=== PATIENT | female | born 1990 | race Caucasian/White ===

== ENCOUNTER 2017-06-27 16:09 | Emergency (ER) | payer MEDICAID ==
[~2017-06-27] VITALS: Ht 157.5 cm; Wt 54.5 kg
[~2017-06-27 16:09] MED LIST: DOXY100C PO; LEVO13.5 I-UTERINE
[2017-06-27] MEDS ORDERED: IOHEXOL 350 MG/ML 10 ML VIAL (for RAD DIAG) IVCONTRAST ONE (16:10)
[2017-06-27 16:11] VITALS: BP 129/83; PULSE 107; RESP 14; TEMP 98.7; O2SAT 99
--- NOTE | 2017-06-27 17:22 | PD ---
HPI Chief Complaint: Maritime Engineer Problem/Complaint Time Seen by Provider: 17:11 Travel History International Travel<30 days: No Contact w/Intl Traveler<30days: No Traveled to known affect area: No History of Present Illness HPI 26-year-old female here for evaluation of lower abdominal pain and vaginal bleeding. The patient reports symptoms have been going on for the last month. She states the vaginal bleeding stopped yesterday. Up until then she had been bleeding through 2 pads daily. She has an IUD in place. She is sexually active with one partner, and has not had intercourse in over a month because of pain with intercourse. No urinary symptoms. No history of abdominal surgeries. No other vaginal discharge other than bleeding. No fevers or chills. Occasionally she becomes nauseous. Currently pain is moderate, however it intermittently worsens at times. It is also worse with movement and palpation, slightly better with rest. PFSH Past Medical History Medical History: Denies Significant Hx ?: Not LMP: 06/26/17 Past Surgical History Surgical History: No Previous Surgery Social History Alcohol Use: No Tobacco Use: Yes (sometimes ) Substance Use: No Allergies-Medications (Allergen,Severity, Reaction): Coded Allergies: No Known Allergies (Unverified Adverse Reaction, Unknown, 06/27/17) Reported Meds & Prescriptions Reported Meds & Active Scripts Active No Active Prescriptions or Reported Medications Review of Systems Except as stated in HPI: all other systems reviewed are Neg Physical Exam Narrative GENERAL: Well-developed, well-nourished, no apparent distress. SKIN: Focused skin assessment warm/dry. No rash. HEAD: Atraumatic. Normocephalic. EYES: Pupils equal and round. No scleral icterus. No injection or drainage. ENT: Mucous membranes pink and moist. NECK: Trachea midline. No JVD. CARDIOVASCULAR: Regular rate and rhythm. RESPIRATORY: No accessory muscle use. Clear to auscultation. Breath sounds equal bilaterally. GASTROINTESTINAL: Abdomen soft, nondistended. Moderate diffuse tenderness without peritoneal signs. Normal bowel sounds. No hernias. 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 Normal external genitalia with piercing. Skin/whitish/rbs-vvpj-gelbnegy vaginal discharge. No vaginal bleeding. Normal-appearing cervix with IUD strings. Normal appearing cervix. Moderate uterine tenderness. No CMT. Moderate left adnexal tenderness without masses. No right adnexal tenderness or mass. MUSCULOSKELETAL: No obvious deformities. No clubbing. No cyanosis. No edema. NEUROLOGICAL: Awake and alert. No obvious cranial nerve deficits. Motor grossly within normal limits. Normal speech. PSYCHIATRIC: Appropriate mood and affect; insight and judgment normal. Data Data Last Documented VS Vital Signs Date Time Temp Pulse Resp B/P (MAP) Pulse Ox O2 Delivery O2 Flow Rate FiO2 06/27/17 19:26 87 16 111/70 (84) 100 Room Air 06/27/17 16:11 98.7 Orders Orders Complete Blood Count With Diff (06/27/17:18) Comprehensive Metabolic Panel (06/27/17 17:18) Lipase (06/27/17:18) Prothrombin Time / Inr (Pt) (06/27/17:18) Act Partial Throm Time (Ptt) (06/27/17:18) Urinalysis - C+S If Indicated (06/27/17 17:18) Ct Abd/Pel W Iv Contrast(Rout) (06/27/17 17:18) Iv Access Insert/Monitor (06/27/17 17:18) Ecg Monitoring (06/27/17 17:18) Oximetry (06/27/17 17:18) Morphine Inj (Morphine Inj) (06/27/17 17:30) Ondansetron Inj (Zofran Inj) (06/27/17 17:30) Sodium Chloride 0.9% Flush (Ns Flush) (06/27/17 17:30) Ed Urine Pregnancytest Poc (06/27/17 17:18) Gc And Chlamydia Pcr (06/27/17 17:18) Wet Prep Profile (06/27/17 17:18) Oral Contrast - Adult (06/27/17 17:22) Diatrizoate Liq ( Gastroview Liq) (06/27/17 17:45) Urine Culture (06/27/17 17:30) Ceftriaxone Inj (Rocephin Inj) (06/27/17 18:30) Iohexol 350 Inj (Omnipaque 350 Inj) (06/27/17 16:10) Azithromycin Powd Pack (Zithromax Powd P (06/27/17 19:30) Doxycycline (Vibramycin) (06/27/17 19:30) Labs Laboratory Tests Test 06/27/17 17:30 06/27/17 18:00 White Blood Count 7.2 TH/MM3 Red Blood Count 3.96 MIL/MM3 Hemoglobin 12.9 GM/DL Hematocrit 36.4 % Mean Corpuscular Volume 91.9 FL Mean Corpuscular Hemoglobin 32.7 PG Mean Corpuscular Hemoglobin Concent 35.6 % Red Cell Distribution Width 12.9 % Platelet Count 184 TH/MM3 Mean Platelet Volume 8.6 FL Neutrophils (%) (Auto) 60.0 % Lymphocytes (%) (Auto) 26.9 % Monocytes (%) (Auto) 7.6 % Eosinophils (%) (Auto) 4.7 % Basophils (%) (Auto) 0.8 % Neutrophils # (Auto) 4.3 TH/MM3 Lymphocytes # (Auto) 1.9 TH/MM3 Monocytes # (Auto) 0.6 TH/MM3 Eosinophils # (Auto) 0.3 TH/MM3 Basophils # (Auto) 0.1 TH/MM3 CBC Comment DIFF FINAL Differential Comment Prothrombin Time 10.9 SEC Prothromb Time International Ratio 1.0 RATIO Activated Partial Thromboplast Time 28.3 SEC Urine Color YELLOW Urine Turbidity HAZY Urine pH 6.5 Urine Specific [place] 1.028 Urine Protein 30 mg/dL Urine Glucose (UA) NEG mg/dL Urine Ketones NEG mg/dL Urine Occult Blood NEG Urine Nitrite NEG Urine Bilirubin NEG Urine Urobilinogen 4.0 MG/DL Urine Leukocyte Esterase LARGE Urine WBC 14 /hpf Urine Squamous Epithelial Cells 6 /hpf Urine Granular Casts 1 /lpf Urine Mucus MOD /lpf Microscopic Urinalysis Comment CULTURE INDICATED Blood Urea Nitrogen 7 MG/DL Creatinine 0.59 MG/DL Random Glucose 74 MG/DL Total Protein 7.3 GM/DL Albumin 3.3 GM/DL Calcium Level 8.6 MG/DL Alkaline Phosphatase 71 U/L Aspartate Amino Transf (AST/SGOT) 22 U/L Alanine Aminotransferase (ALT/SGPT) 14 U/L Total Bilirubin 0.3 MG/DL Sodium Level 138 MEQ/L Potassium Level 3.7 MEQ/L Chloride Level 103 MEQ/L Carbon Dioxide Level 30.0 MEQ/L Anion Gap 5 MEQ/L Estimat Glomerular Filtration Rate 121 ML/MIN Lipase 74 U/L Clue Cells (Wet Prep) NONE SEEN Vaginal Trichomonas (Wet Prep) NONE SEEN Vaginal Yeast (Wet Prep) NONE SEEN MDM Medical Decision Making Medical Screen Exam Complete: Yes Emergency Medical Condition: Yes Differential Diagnosis Appendicitis, colitis, PID, TOA, UTI, cystitis, IUD migration, ovarian cyst, ovarian torsion less likely, , ectopic Narrative Course Initial vital signs show heart rate 107, blood pressure 129/83, pulse ox 99% on room air, oral temp of 98.7F. Repeat heart rate is 87. CBC: WBC 7.2, hemoglobin 12.9, hematocrit 36.4, platelets 184. CMP is unremarkable. Lipase 74. UA: Hazy, 30 protein, large leukocyte esterase, 14 wbc's, 6 epithelial cells, moderate mucus. Wet prep is negative for use, negative for clue cells, negative for Trichomonas. CT abdomen pelvis: CONCLUSION: 1. Tubular fluid-filled structure involving the right adnexa concerning for possible hydrosalpinx or tubo-ovarian abscess. Ultrasound could further evaluate if clinically warranted. 2. Umbilical hernia. Case discussed with on-call radiologist Dr. Garcia who took a second look at the CT and reports normal appendix. Case discussed in detail with on-call OB hospitalist Dr. Grier. Because the patient is afebrile and has a normal white count, he recommends treating the patient with Rocephin and azithromycin 1 dose, and doxycycline. She is to follow-up with a collateral clerk in the next 2-3 days, and informed to return to the emergency department for worsening symptoms or any other concerns. He does not recommend performing ultrasound at this time. He also does not recommend removing the IUD at this time. On reassessment the patient is resting comfortably. Her umbilical hernia is easily reducible and is nontender. She was made aware of all findings and provided a copy of her CT abdomen pelvis report. She has an appointment with [place] [facility] this week. She was informed on when to return to the emergency department patient verbalizes understanding and agreement with plan. Diagnosis Primary Impression: PID (acute pelvic inflammatory disease) Additional Impressions: Hydrosalpinx Umbilical hernia Qualified Codes: K42.9 - Umbilical hernia without obstruction or gangrene Referrals: [facility] 3 days Additional Instructions: Follow-up with an [facility] physician this week. Take antibiotics as prescribed. Return to the emergency department for worsening symptoms or any other concerns. Scripts Oxycodone-Acetaminophen (Percocet) 5-325 mg Tab 1 TAB PO Q6H Y for PAIN, #15 TAB 0 Refills Prov: Jarrett Coto MD 06/27/17 Doxycycline Hyclate (Doxycycline Hyclate) 100 Mg Cap 100 MG PO BID for Infection for 10 Days, #20 CAP 0 Refills Prov: Jarrett Coto MD 06/27/17 Disposition: 01 DISCHARGE HOME Condition: Stable Jarrett Coto MD Jun 27, 2017 17:21
[2017-06-27] MEDS ORDERED: SODIUM CHLORIDE 0.9% FLUSH 10 ML FLUSH IV FLUSH PRN (17:30)
[2017-06-27] MEDS ORDERED: ONDANSETRON HCL 4 MG/2 ML VIAL IVP ONE (17:30)
[2017-06-27] MEDS ORDERED: MORPHINE SULFATE 4 MG/ML INJ IV PUSH ONE (17:30)
[2017-06-27] MEDS ORDERED: DIATRIZOATE MEGLUM/DIATRIZOATE SOD 9 ML CUP ONE (17:45)
[2017-06-27 17:47] LABS: AUTOMATED NEUTROPHIL # 4.3 TH/MM3 (1.8-7.7); BASOPHIL # 0.1 TH/MM3 (0-0.2); BASOPHIL % 0.8 % (0.0-2.0); EOSINOPHIL # 0.3 TH/MM3 (0-0.4); EOSINOPHIL % 4.7 % (0.0-4.0); HEMATOCRIT 36.4 % (35.0-46.0); HEMO FLAGS DIFF FINAL; LYMPH % 26.9 % (9.0-44.0); LYMPHOCYTE # 1.9 TH/MM3 (1.0-4.8); MEAN CELL VOLUME 91.9 FL (80.0-100.0); MEAN CORPUSCULAR HEMOGLOBIN 32.7 PG (27.0-34.0); MEAN CORPUSCULAR HGB CONC 35.6 % (32.0-36.0); MONO % 7.6 % (0.0-8.0); PLATELET COUNT 184 TH/MM3 (150-450); RED BLOOD COUNT 3.96 MIL/MM3 (4.00-5.30); RED CELL DISTRIBUTION WIDTH 12.9 % (11.6-17.2); WHITE BLOOD COUNT 7.2 TH/MM3 (4.0-11.0)
[2017-06-27 18:03] LABS: ALKALINE PHOSPHATASE 71 U/L (45-117); TOTAL BILIRUBIN ADULT 0.3 MG/DL (0.2-1.0)
[2017-06-27 18:05] LABS: APTT (PATIENT) 28.3 SEC (24.3-30.1); PROTHROMBIN TIME - PATIENT 10.9 SEC (9.8-11.6)
[2017-06-27 18:09] LABS: BLOOD, URINE NEG (NEG); COMMENT (UR) CULTURE INDICATED; CULTURE IF INDICATED CULTURE INDICATED; GLUCOSE,URINE NEG (NEG); GRANULAR CAST, URINE 1 /lpf; KETONE, URINE NEG (NEG); MUCUS URINE MOD /lpf (OCC); NITRITE,URINE NEG (NEG); PH, URINE 6.5 (5.0-8.5); SQUAMOUS EPITHELIAL CELL URINE 6 /hpf (0-5); URINE COLOR YELLOW (YELLW/STRAW)
[2017-06-27 18:22] LABS: ALT (GPT) 14 U/L (10-53); ANION GAP 5 MEQ/L (5-15); AST (GOT) 22 U/L (15-37); BLOOD UREA NITROGEN 7 MG/DL (7-18); CHLORIDE 103 MEQ/L (98-107); GLOMERULAR FILTRATION RATE 121 ML/MIN (>89); SODIUM (NA) 138 MEQ/L (136-145)
[2017-06-27] MEDS ORDERED: cefTRIAXone INJ 1,000 MG in SODIUM CHLORIDE 0.9% INJ 100 ML IV ONE (18:30)
[2017-06-27 18:36] LABS: POTASSIUM 3.7 MEQ/L (3.5-5.1)
--- NOTE | 2017-06-27 18:51 | PD ---
Physical Exam Date Seen by Provider: Jun 27, 2017 Time Seen by Provider: 18:47 Narrative GENITOURINARY: Normal external genitalia without lesions or erythema. Vaginal vault without blood but with moderate drainage. Cervical os was closed with thin , yellow, frothy drainage. No cervical motion tenderness. Uterus nontender and nonenlarged. Bilateral adnexa nontender without masses. Data Data Last Documented VS Vital Signs Date Time Temp Pulse Resp B/P (MAP) Pulse Ox O2 Delivery O2 Flow Rate FiO2 06/27/17 19:26 87 16 111/70 (84) 100 Room Air 06/27/17 16:11 98.7 Orders Orders Complete Blood Count With Diff (06/27/17 17:18) Comprehensive Metabolic Panel (06/27/17:18) Lipase (06/27/17:18) Prothrombin Time / Inr (Pt) (06/27/17 17:18) Act Partial Throm Time (Ptt) (06/27/17 17:18) Urinalysis - C+S If Indicated (06/27/17 17:18) Ct Abd/Pel W Iv Contrast(Rout) (06/27/17 17:18) Iv Access Insert/Monitor (06/27/17 17:18) Ecg Monitoring (06/27/17 17:18) Oximetry (06/27/17 17:18) Morphine Inj (Morphine Inj) (06/27/17 17:30) Ondansetron Inj (Zofran Inj) (06/27/17 17:30) Sodium Chloride 0.9% Flush (Ns Flush) (06/27/17 17:30) Ed Urine Pregnancytest Poc (06/27/17 17:18) Gc And Chlamydia Pcr (06/27/17 17:18) Wet Prep Profile (06/27/17 17:18) Oral Contrast - Adult (06/27/17 17:22) Diatrizoate Liq ( Gastroview Liq) (06/27/17 17:45) Urine Culture (06/27/17 17:30) Ceftriaxone Inj (Rocephin Inj) (06/27/17 18:30) Iohexol 350 Inj (Omnipaque 350 Inj) (06/27/17 16:10) Azithromycin Powd Pack (Zithromax Powd P (06/27/17 19:30) Doxycycline (Vibramycin) (06/27/17 19:30) Labs Laboratory Tests Test 06/27/17 17:30 06/27/17 18:00 White Blood Count 7.2 TH/MM3 Red Blood Count 3.96 MIL/MM3 Hemoglobin 12.9 GM/DL Hematocrit 36.4 % Mean Corpuscular Volume 91.9 FL Mean Corpuscular Hemoglobin 32.7 PG Mean Corpuscular Hemoglobin Concent 35.6 % Red Cell Distribution Width 12.9 % Platelet Count 184 TH/MM3 Mean Platelet Volume 8.6 FL Neutrophils (%) (Auto) 60.0 % Lymphocytes (%) (Auto) 26.9 % Monocytes (%) (Auto) 7.6 % Eosinophils (%) (Auto) 4.7 % Basophils (%) (Auto) 0.8 % Neutrophils # (Auto) 4.3 TH/MM3 Lymphocytes # (Auto) 1.9 TH/MM3 Monocytes # (Auto) 0.6 TH/MM3 Eosinophils # (Auto) 0.3 TH/MM3 Basophils # (Auto) 0.1 TH/MM3 CBC Comment DIFF FINAL Differential Comment Prothrombin Time 10.9 SEC Prothromb Time International Ratio 1.0 RATIO Activated Partial Thromboplast Time 28.3 SEC Urine Color YELLOW Urine Turbidity HAZY Urine pH 6.5 Urine Specific [place] 1.028 Urine Protein 30 mg/dL Urine Glucose (UA) NEG mg/dL Urine Ketones NEG mg/dL Urine Occult Blood NEG Urine Nitrite NEG Urine Bilirubin NEG Urine Urobilinogen 4.0 MG/DL Urine Leukocyte Esterase LARGE Urine WBC 14 /hpf Urine Squamous Epithelial Cells 6 /hpf Urine Granular Casts 1 /lpf Urine Mucus MOD /lpf Microscopic Urinalysis Comment CULTURE INDICATED Blood Urea Nitrogen 7 MG/DL Creatinine 0.59 MG/DL Random Glucose 74 MG/DL Total Protein 7.3 GM/DL Albumin 3.3 GM/DL Calcium Level 8.6 MG/DL Alkaline Phosphatase 71 U/L Aspartate Amino Transf (AST/SGOT) 22 U/L Alanine Aminotransferase (ALT/SGPT) 14 U/L Total Bilirubin 0.3 MG/DL Sodium Level 138 MEQ/L Potassium Level 3.7 MEQ/L Chloride Level 103 MEQ/L Carbon Dioxide Level 30.0 MEQ/L Anion Gap 5 MEQ/L Estimat Glomerular Filtration Rate 121 ML/MIN Lipase 74 U/L Clue Cells (Wet Prep) NONE SEEN Vaginal Trichomonas (Wet Prep) NONE SEEN Vaginal Yeast (Wet Prep) NONE SEEN MDM Medical Record Reviewed: Yes Supervised Visit with PINKY: Yes Narrative Course I was asked by Dr. Coto to perform a pelvic exam on this patient. Please see his note for further details. Scripts No Active Prescriptions or Reported Meds Sonal Everett Jun 27, 2017 18:51
--- NOTE | 2017-06-27 19:11 | RADRPT ---
EXAM DATE/TIME: 06/27/2017 18:48 This report includes an Addendum and supersedes previous reports for this exam. [facility] COMPARISON: No previous studies available for comparison. INDICATIONS : Patient complains of abdominal pain. IV CONTRAST: 70 cc Omnipaque 350 (iohexol) IV ORAL CONTRAST: Prescribed oral contrast ingested. RADIATION DOSE: 6.76 CTDIvol (mGy) MEDICAL HISTORY : None SURGICAL HISTORY : None. ENCOUNTER: Initial ACUITY: 1 month PAIN SCALE: 7/10 LOCATION: abdomen TECHNIQUE: Volumetric scanning of the abdomen and pelvis was performed. Using automated exposure control and ad justment of the mA and/or kV according to patient size, radiation dose was kept as low as reasonably achievable to obtain optimal diagnostic quality images. DICOM format image data is available electro nically for review and comparison. FINDINGS: LOWER LUNGS: The visualized lower lungs are clear. LIVER: Homogeneous density without lesion. There is no dilation of the biliary tree. No calcified gallston es. SPLEEN: Normal size without lesion. PANCREAS: Within normal limits. KIDNEYS: Normal in size and shape. There is no mass, stone or hydronephrosis. ADRENAL GLANDS: Within normal limits. VASCULAR: There is no aortic aneurysm. BOWEL/MESENTERY: The stomach, small bowel, and colon demonstrate no acute abnormality. There is no free intraperitone al air or fluid. ABDOMINAL WALL: There is an umbilical hernia containing omental fat. No stranding of the fat. RETROPERITONEUM: There is no lymphadenopathy. BLADDER: No wall thickening or mass. REPRODUCTIVE: There is a tubular fluid-filled structure involving the right adnexa measuring 6.8 x 2.0 cm. There is some stranding of the fat within the adjacent pelvis a trace amount of free fluid in the cul-de-sac. An IUD is seen associated with endometrial canal. INGUINAL: There is no lymphadenopathy or hernia. MUSCULOSKELETAL: Within normal limits for patient age. CONCLUSION: 1. Tubular fluid-filled structure involving the right adnexa concerning for possible hydrosalpinx or tubo-ovarian abscess. Ultrasound could further evaluate if clinically warranted. 2. Umbilical hernia. Star Garcia Jr., MD on June 27, 2017 at 19:06 Board Certified Radiologist. This report was verified electronically. ADDENDUM: The appendix is normal by CT criteria. Star Garcia Jr., MD on June 27, 2017 at 19:21 Board Certified Radiologist. This report was verified electronically.
[2017-06-27 19:26] VITALS: BP 111/70; PULSE 87; RESP 16; O2SAT 100
[2017-06-27] MEDS ORDERED: AZITHROMYCIN PWD FOR SUSP 1 GM PACKET PO ONE (19:30)
[2017-06-27] MEDS ORDERED: DOXYCYCLINE HYCLATE 100 MG CAP PO ONE (19:30)
[2017-06-27] MEDS ORDERED: PERC5TAB12 PO (19:34)
[2017-06-27] MEDS ORDERED: DOXY100C PO (19:34)
[2017-06-27 20:49] LABS: CHLAMYDIA PCR NOT DETECTED (NOT DETECT); NEISSERIA PCR DETECTED (NOT DETECT)
== END 2017-06-27 19:56 | disposition home or self-care (01) ==
LOC: NEPD 16:09
DX: N73.9 Female pelvic inflammatory disease, unspecified (principal); N70.11 Chronic salpingitis; K42.9 Umbilical hernia without obstruction or gangrene; Z72.0 Tobacco use
CPT/HCPCS: 74177; 80053; 81001; 83690; 84703; 85025; 85610; 85730; 87086; 87210; 87491; 87591; 96374; 96375; 99285; J0696; J2270; J2405; Q9963; Q9967

== ENCOUNTER 2017-07-20 08:12 | Emergency (ER) | payer MEDICAID ==
[~2017-07-20] VITALS: Ht 157.5 cm; Wt 50.0 kg
[~2017-07-20 08:12] MED LIST changes: -LEVO13.5 I-UTERINE; +PERC5TAB12 PO
[2017-07-20 08:13] VITALS: BP 126/75; PULSE 107; RESP 16; TEMP 98.8; O2SAT 100
--- NOTE | 2017-07-20 08:46 | PD ---
HPI Chief Complaint: ENT Complaint Time Seen by Provider: 08:46 Travel History International Travel<30 days: No Contact w/Intl Traveler<30days: No Traveled to known affect area: No History of Present Illness HPI 26-year-old female presents to the emergency Department with complaint of nasal congestion, ear pressure, sore throat, body aches, fever 6 days. MAXIMUM TEMPERATURE of 102.0. Denies lump in throat, difficulty swallowing, unusual drooling. Reports painful swallowing. Reports burning sensation in her throat. Denies cough, chest pain, shortness of breath, abdominal pain, vomiting , dysuria, change in stool. No sick contacts. Has taken multiple over-the- counter cold/flu medications for symptom management. No known aggravating or relieving factors. Symptoms are mild in severity. Has no other medical complaints. Denies significant past medical history. Does not have a primary care provider. No other modifying factors or associated signs and symptoms. PFSH Past Medical History ?: Not LMP: 3 days ago Social History Alcohol Use: No Tobacco Use: Yes (sometimes ) Substance Use: No Allergies-Medications (Allergen,Severity, Reaction): Coded Allergies: No Known Allergies (Unverified Adverse Reaction, Unknown, 07/20/17) Reported Meds & Prescriptions Reported Meds & Active Scripts Active Magic Mouthwash Pediatric/Adult Liq (Lidocaine/Diphenhydr/Alum/Mg/Simeth) 60 Ml Susp 5 Ml SWISH-SWAL Q3HR PRN Each 5mL contains: Diphenydramine 4.5mg, Viscous Lidocaine 2% 10mg, Maalox Advanced Regular Strength 2.7ml Amoxicillin 500 Mg Cap 500 Mg PO BID 10 Days Review of Systems Except as stated in HPI: all other systems reviewed are Neg Physical Exam Narrative GENERAL: Well-nourished, well-developed female patient, in no acute distress; afebrile, nontoxic-appearing SKIN: Warm and dry. No rash. HEAD: Atraumatic. Normocephalic. EYES: Pupils equal and round. No scleral icterus. No injection or drainage. ENT: Mucosa pink and moist. Oral pharynx with erythema and edema; without exudates. No uvular edema. No uvular, palatal, or tonsillar deviation. Airway patent. EARS: Bilateral pinnae and external canals appear within normal limits. Bilateral tympanic membranes without erythema, dullness or perforation. NECK: Trachea midline. No lymphadenopathy. CARDIOVASCULAR: Regular rate and rhythm. No murmur appreciated. RESPIRATORY: No accessory muscle use. Clear to auscultation. Breath sounds equal bilaterally. No retractions or tachypnea. GASTROINTESTINAL: Abdomen soft, non-tender, nondistended. Hepatic and splenic margins not palpable. Bowel sounds are active 4 quadrants. MUSCULOSKELETAL: No obvious deformities. No clubbing. No cyanosis. No edema. NEUROLOGICAL: Awake and alert. Oriented 3. No obvious cranial nerve deficits. Motor grossly within normal limits. Normal speech. Moves all extremities. 5/5 strength to all extremities. PSYCHIATRIC: Appropriate mood and affect; insight and judgment normal. Data Data Last Documented VS Vital Signs Date Time Temp Pulse Resp B/P (MAP) Pulse Ox O2 Delivery O2 Flow Rate FiO2 07/20/17 08:13 98.8 107 16 126/75 (92) 100 Orders Orders Group A Rapid Strep Screen (07/20/17 08:46) Influenzae A/B Antigen (07/20/17 08:46) Ibuprofen (Motrin) (07/20/17 09:00) Strep Culture (Group A) (07/20/17 08:52) Ed Discharge Order (07/20/17 09:27) MDM Medical Decision Making Medical Screen Exam Complete: Yes Emergency Medical Condition: Yes Medical Record Reviewed: Yes Differential Diagnosis Influenza, strep pharyngitis, upper respiratory infection, viral illness Narrative Course 923: Influenza and rapid strep negative. Suspecting URI. I will treat the patient with antibiotics secondary to length of illness. Amoxicillin, Magic mouthwash prescribed for home. Instructed patient to follow up with primary care provider. Patient verbalizes understanding and agreement with treatment plan. Patient is medically cleared and stable for discharge. Discussed reasons to return to the emergency department. Patient agrees with treatment plan. The patients vital signs are stable and the patient is stable for outpatient follow-up and treatment. Patient discharged home, stable and in no acute distress. Diagnosis Primary Impression: Upper respiratory infection Qualified Codes: J06.9 - Acute upper respiratory infection, unspecified Referrals: Primary Care Physician Patient Instructions: General Instructions, Safe Use of Cough and Cold Medicines (ED), Upper Respiratory Infection (ED) Departure Forms: Tests/Procedures, Work Release Enter return to work date: Jul 22, 2017 Additional Instructions: Ibuprofen or Tylenol as directed and as needed to reduce fever; may alternate ibuprofen and Tylenol as needed every 3 hours to minimize fever Fvcb-gwh-[id number] cold/flu medications as directed and as needed for symptom management Get plenty of sleep/rest Drink plenty of fluids to prevent dehydration; such as Gatorade, Powerade, Pedialyte [place] diet to encourage nutrition such as crackers, fruit, applesauce, toast, soup etc. Use an air humidifier/turn off ceiling fans Follow-up with your primary care provider Return immediately to the emergency department with worsening of symptoms Med/Other Pt SpecificInfo: Prescription(s) given Scripts Xopyuphrnyeoeph-Lloyjgyvs-Fip-Alum-Simeth Liq (Magic Mouthwash Pediatric/Adult Liq) 60 Ml Susp 5 ML SWISH-SWAL Q3HR Y for SORE THROAT, #60 ML 0 Refills Each 5mL contains: Diphenydramine 4.5mg, Viscous Lidocaine 2% 10mg, Maalox Advanced Regular Strength 2.7ml Prov: Toshia Ayala 07/20/17 Amoxicillin (Amoxicillin) 500 Mg Cap 500 MG PO BID for Infection for 10 Days, #20 CAP 0 Refills Prov: Toshia Ayala 07/20/17 Disposition: 01 DISCHARGE HOME Condition: Stable Toshia Ayala Jul 20, 2017 08:46
[2017-07-20] MEDS ORDERED: IBUPROFEN 800 MG TAB PO ONE (09:00)
[2017-07-20] MEDS ORDERED: AMOX500C PO (09:26)
[2017-07-20] MEDS ORDERED: MAGICPED SWISH-SWAL (09:26)
== END 2017-07-20 09:34 | disposition home or self-care (01) ==
LOC: NEPD 08:12
DX: J06.9 Acute upper respiratory infection, unspecified (principal); Z72.0 Tobacco use
CPT/HCPCS: 87081; 87804; 87880; 99284